=== PATIENT | female | born 1965 | race Caucasian/White ===

== ENCOUNTER → 2016-08-13 | Outpatient (CLI) | payer OTHER ==
[~2016-08-13] MED LIST: ACYC400T PO; ALBU17AE3 IH; AMIT25TA9 PO; AMOX500C2 PO; AZTH250C PO; BENZ100C18 PO; CEFP500T4 PO; CETI-208 PO; CETI10TA17 PO; CODE118S2 PO; DOXY100C2 PO; IBP800T PO; LRT10T PO; LVT.15T PO; MELO-195 PO; METH4TAB PO; METH5TAB6 PO; METO-333 PO; MPR22TI; NAPR-243 PO; NAPR220C PO; ONDAN4ODT PO; OXYC-12 PO; OXYC-309 PO; PRCD5U PO; PRD20T PO; TRAM50TA2 PO; TRM50T PO; WRF5T PO; [UNRECOGNIZED DRUG - OTHER] PO
--- OUTSIDE RECORDS SUMMARY | 2016-08-13 12:30 | XMS REPORT ---
Author Author ЮЛИЯ ZEPEDA [facility] eClinicalWorks Address Unknown Phone Unavailable Care Team Providers Care Key Person Name Role Phone ЮЛИЯ ZEPEDA CP Unavailable Allergies, Adverse Reactions, Alerts Substance Reaction Event Type Cortisone shot form Drug Allergy Penicillin V Potassium Info Not Available Drug Allergy Neurontin Info Not Available Drug Allergy Cymbalta Info Not Available Drug Allergy Problems Problem Type Condition Code Onset Dates Condition Status Problem Fibromyoma D21.9 Active Problem Gastroesophageal reflux disease without esophagitis K21.9 Active Problem Chronic pain G89.29 Active Problem Routine gynecological examination Z01.419 Active Assessment Pre-diabetes R73.09 Active Problem Screening breast examination Z12.39 Active Problem Pre-diabetes R73.09 Active Problem Generalized edema R60.1 Active Problem Slow transit constipation K59.01 Active Problem Left otitis media with effusion H66.92 Active Problem Vitamin D deficiency E55.9 Active Assessment Abnormal fasting glucose R73.01 Active Assessment Gastroesophageal reflux disease without esophagitis K21.9 Active Assessment Vitamin D deficiency E55.9 Active Assessment Generalized edema R60.1 Active Assessment Fibromyoma D21.9 Active Problem Abnormal fasting glucose R73.01 Active Assessment Allergic rhinitis J30.9 Active Problem Allergic rhinitis J30.9 Active Assessment Acquired hypothyroidism E03.9 Active Problem Acquired hypothyroidism E03.9 Active Medications Medication Code System Code Instructions Start Date End Date Status Dosage Cyclobenzaprine HCl [facility] [address]-71 10 MG Orally Three times a day 1 tablet as needed Hydrochlorothiazide [facility] [address]-60 25 MG Orally every other day October 31, 2015 1 tablet Levothyroxine Sodium [facility] [address]-22 112mcg Orally Once a day 1 tablet Omeprazole [facility] [address]-22 40 MG Orally Once a day 1 capsule Naproxen [facility] [address]-20 500 MG Orally 2 times a day 1 tablet Tramadol HCl [facility] [address]-23 50 MG Orally 2 times a day prn 1 tablet as needed Cetirizine HCl [facility] [address]-91 10 MG Orally Once a day 1 tablet Vitamin D3 [facility] [address] 34123 UNIT Orally once weekly January 03, 2016 1 tablet Procedures Procedure Coding System Code Date Office Visit, Est Pt., Level 4 CPT-4 69747 Jan 29, 2016 GLYCATED HEMOGLOBIN TEST CPT-4 73132 Jan 29, 2016 Vital Signs Date/Time: Jan 29, 2016 Cardiac Monitoring Heart Rate 78 bpm Weight 255.0 lbs Height 66 in BMI 41.15 Index Blood Pressure Diastolic 86 mmHg Blood Pressure Systolic 140 mmHg Results No Known Results Summary Purpose eClinicalWorks Submission
--- NOTE | 2016-08-13 14:23 | Diagnostic Imaging Report ---
PROCEDURE: CT abdomen without contrast. TECHNIQUE: Multiple contiguous axial images were obtained through the abdomen without the use of intravenous contrast. INDICATION: Abdominal mass. FINDINGS: The lung bases appear clear. The liver demonstrate diffuse marked degree of fatty infiltration. Cholecystectomy clips are seen. The spleen, the pancreas, and the adrenal glands appear unremarkable. The kidneys demonstrate no stones or hydronephrosis. Abdominal aorta is normal in caliber. No periaortic significantly enlarged lymph nodes. No free fluid or fluid collection in the abdomen seen. The segments of the colon and small bowel seen within the abdomen appear grossly unremarkable. The osseous structures demonstrate mild degenerative lateral osteophytes in the lower thoracic spine. There is vertebral body hemangioma in L2 level measuring 2 cm. IMPRESSION: Hepatic steatosis. Dictated by: Dictated on workstation # [id number]
== END ==
LOC: RAD 12:25
PROVIDERS: ATTEND Nurse Practitioner Family
DX: R19.02 Left upper quadrant abdominal swelling, mass and lump (principal)
CPT/HCPCS: 74150

== ENCOUNTER 2016-08-30 06:28 | Emergency (ER) | payer OTHER ==
[~2016-08-30] VITALS: Ht 165.1 cm; Wt 108.9 kg
[~2016-08-30 06:28] MED LIST changes: -ACYC400T PO; -PRD20T PO
[2016-08-30 06:52] LABS: BASOPHILS # (AUTO) 0.1 10^3/uL (0.0-0.1); BASOPHILS % (AUTO) 1 % (0-10); EOSINOPHILS # (AUTO) 0.5 10^3/uL (0.0-0.3); EOSINOPHILS % (AUTO) 5 % (0-10); LYMPHOCYTES # (AUTO) 2.9 X 10^3 (1.0-4.0); LYMPHOCYTES % (AUTO) 31 % (12-44); MEAN CORPUSCULAR HEMOGLOBIN 30 PG (25-34); MEAN CORPUSCULAR HGB CONC 34 G/DL (32-36); MEAN CORPUSCULAR VOLUME 86 FL (80-99); MEAN PLATELET VOLUME 10.6 FL (7.4-10.4); MONOCYTES # (AUTO) 0.6 X 10^3 (0.0-1.0); MONOCYTES % (AUTO) 6 % (0-12); NEUTROPHILS # (AUTO) 5.3 X 10^3 (1.8-7.8); NEUTROPHILS % (AUTO) 57 % (42-75); PLATELET COUNT 307 10^3/uL (130-400); RED BLOOD COUNT 4.51 10^6/uL (4.35-5.85); RED CELL DISTRIBUTION WIDTH 14.9 % (10.0-14.5); WHITE BLOOD COUNT 9.3 10^3/uL (4.3-11.0)
[2016-08-30] MEDS ORDERED: ACYCLOVIR 400 MG TABLET (ZOVIRAX) PO ONE (07:00)
[2016-08-30] MEDS ORDERED: predniSONE 20 MG TAB PO ONE ×2 (07:00→07:15)
--- NOTE | 2016-08-30 07:01 | ED Neurological Problem ---
General Chief Complaint: Neurological Problems Stated Complaint: POSS STROKE Nursing Triage Note: PT TO ED 5 W/ C/O LT SIDE FACIAL WEAKNESS ONSET YESTERDAY AT 1600. PT REPORTS SHE WOKE YESTERDAY FEELING "WEIRD". LT SIDE FACIAL DROOP NOTED, LT EYE WEEPING ET FACE HAS ASYMETRICAL APPEARANCE AT THIS TIME. NO OTHER DEFICIT NOTED, CRANE MAN EQUAL BILATERALLY. NO OTHER C/O VOICED Nursing Sepsis Screen: No Definite Risk Source: patient Exam Limitations: no limitations History of Present Illness Time seen by provider: 06:35 Initial Comments This 51-year-old woman presents to the emergency room with complaints of left- sided facial numbness and drooping. Symptoms were present upon waking this morning. Her last known well time was actually 2 nights ago as she noticed unusual feelings on the left side of the face including discomfort behind the left ear and left eye without noticeable neurologic deficits 2 nights ago. She reports recently being on doxycycline for swollen lymph nodes in her neck without any specific diagnosis. Antibiotics were prescribed on August 13. She completed all but 2 capsules. She has some left bicep pain which appears unrelated. She denies any other neurologic complaints such as numbness or weakness. She has minor headache. Weakness involves the eyelids and forehead. Patient also states she recently had a large increase in her levothyroxine dosing. Allergies and Home Medications Allergies Coded Allergies: Corticosteroids (Glucocorticoids) (Unverified Allergy, Unknown, HIVES, ) Reaction to joint injection. Takes prednisone without problems. gabapentin (Verified Allergy, Unknown, 08/30/16) hydrocodone (Unverified Adverse Reaction, Intermediate, NAUSEA, 08/30/16) Induces nausea and vomiting Uncoded Allergies: PENICILLIAN (Allergy, Unknown, 08/30/16) Home Medications Acyclovir 400 Mg Tablet #35 400 MG PO 5XD Prescribed by: DUYEN ALBERTO on 08/30/16 0740 Levothyroxine Sodium 150 Mcg Tablet 1 EACH PO DAILY (Reported) Loratadine 10 Mg Tab 10 MG PO DAILY (Reported) Mupirocin 22 Gm Tube 1 APPLIC NA BID (Reported) APPLY TO AFFECTED AREA(S) Oxycodone Hcl/Acetaminophen 1 Each Tablet #40 1 EACH PO Q4-6H PRN PRN PRN ( Reported) Prednisone 20 Mg Tab #12 20 MG PO UD Start 08/31/16. 3 tabs daily x2 days, then 2 tabs daily x2 days, then 1 tab daily x2 days. Prescribed by: DUYEN ALBERTO on 08/30/16 0740 Warfarin Sod 5 Mg Tab 7.5 MG PO DAILY@18 (Reported) Take as instructed by Dr. Robles Constitutional: no symptoms reported Eyes: See HPI Ears, Nose, Mouth, Throat: see HPI Respiratory: no symptoms reported Cardiovascular: no symptoms reported Gastrointestinal: no symptoms reported Genitourinary: no symptoms reported : No Musculoskeletal: see HPI Skin: no symptoms reported Psychiatric/Neurological: See HPI Endocrine: No Symptoms Reported Hematologic/Lymphatic: No Symptoms Reported Past Xtjjoyi-Mdmhpy-Mtmhbf Hx Patient Social History Alcohol Use: Denies Use Recreational Drug Use: No Smoking Status: Never a Smoker Recent Foreign Travel: No Contact w/Someone Who Travel: No Recent Infectious Disease Expo: No Recent Hopitalizations: No Immunizations Up To Date Tetanus Booster (TDap): Unknown Date of Influenza Vaccine: Jun 15, 2010 Surgeries HX Surgeries: Yes (C/S X2, ) Surgeries: Orthopedic (knee), Thyroidectomy Respiratory Hx Respiratory Disorders: No Cardiovascular Hx Cardiac Disorders: No Neurological Hx Neurological Disorders: No Reproductive System Hx Reproductive Disorders: No Genitourinary Hx Genitourinary Disorders: No Gastrointestinal Hx Gastrointestinal Disorders: No Musculoskeletal Hx Musculoskeletal Disorders: Yes (PAIN DUE TO THYROID (IN HANDS AND KNEES) ) Musculoskeletal Disorders: Arthritis, Fibromyalgia Endocrine Hx Endocrine Disorders: Yes (GRAVES DISEASE, TOTAL THYROIDECTOMY) Endocrine Disorders: Hypothyroidsim HEENT HX ENT Disorders: No Cancer Hx Cancer: No Psychosocial Hx Psychiatric Problems: No Integumentary HX Skin/Integumentary Disorder: No Blood Transfusions Hx Blood Disorders: No Physical Exam Vital Signs Vital Sign - Last 12Hours 08/30/16 06:29 Temp 96.0 Pulse 95 Resp 16 B/P 135/103 O2 Delivery Room Air Capillary Refill : Less Than 3 Seconds General Appearance: WD/WN no apparent distress obese HEENT: PERRL/EOMI TMs normal pharynx normal other (left-sided facial weakness) Neck: normal inspection other (thyroidectomy scar) Respiratory: lungs clear normal breath sounds no respiratory distress no accessory muscle use Cardiovascular: regular rate, rhythm no edema no murmur Gastrointestinal: normal bowel sounds non tender soft Extremities: normal inspection no pedal edema Neurologic/Psychiatric: no motor/sensory deficits alert normal mood/affect oriented x 3 Crainal Nerves: normal hearing normal speech PERRL facial asymmetry (left facial weakness including weak blink and loss of muscle tone in the left forehead) facial paresthesias (left face) Coordination/Gait: normal finger to nose normal gait Skin: normal color warm/dry Focused Exam Lactic Acid Level Laboratory Tests Test 08/30/16 06:30 Alanine Aminotransferase (ALT/SGPT) 23U/L (0-55) Albumin 3.8G/DL (3.2-4.5) Alkaline Phosphatase 71U/L (40-136) Anion Gap 10MMOL/L (5-14) Aspartate Amino Transf (AST/SGOT) 21U/L (5-34) BUN/Creatinine Ratio 15 Blood Urea Nitrogen 14MG/DL (7-18) Calcium Level 8.9MG/DL (8.5-10.1) Carbon Dioxide Level 28MMOL/L (21-32) Chloride Level 101MMOL/L (98-107) Creatinine 0.92MG/DL (0.60-1.30) Estimat Glomerular Filtration Rate > 60 Free Thyroxine 0.91NG/DL (0.70-1.48) Glucose Level 120MG/DL (70-105) H Potassium Level 3.4MMOL/L (3.6-5.0) L Sodium Level 139MMOL/L (135-145) Thyroid Stimulating Hormone (TSH) 14.40UIU/ML (0.35-4.94) H Total Bilirubin 0.6MG/DL (0.1-1.0) Total Protein 7.1G/DL (6.4-8.2) Progress/Results/Core Measures Results/Orders Lab Results Laboratory Tests Test 08/30/16 06:30 Range/Units Alanine Aminotransferase (ALT/SGPT) 23 0-55 U/L Albumin 3.8 3.2-4.5 G/DL Alkaline Phosphatase 71 40-136 U/L Anion Gap 10 5-14 MMOL/L Aspartate Amino Transf (AST/SGOT) 21 5-34 U/L BUN/Creatinine Ratio 15 Basophils # (Auto) 0.1 0.0-0.1 10^3/uL Basophils (%) (Auto) 1 0-10 % Blood Urea Nitrogen 14 7-18 MG/DL Calcium Level 8.9 8.5-10.1 MG/DL Carbon Dioxide Level 28 21-32 MMOL/L Chloride Level 101 98-107 MMOL/L Creatinine 0.92 0.60-1.30 MG/DL Eosinophils # (Auto) 0.5 H 0.0-0.3 10^3/uL Eosinophils (%) (Auto) 5 0-10 % Estimat Glomerular Filtration Rate > 60 Free Thyroxine 0.91 0.70-1.48 NG/DL Glucose Level 120 H 70-105 MG/DL Hematocrit 39 35-52 % Hemoglobin 13.3 11.5-16.0 G/DL Lymphocytes # (Auto) 2.9 1.0-4.0 X 10^3 Lymphocytes (%) (Auto) 31 12-44 % Mean Corpuscular Hemoglobin 30 25-34 PG Mean Corpuscular Hemoglobin Concent 34 32-36 G/DL Mean Corpuscular Volume 86 80-99 FL Mean Platelet Volume 10.6 H 7.4-10.4 FL Monocytes # (Auto) 0.6 0.0-1.0 X 10^3 Monocytes (%) (Auto) 6 0-12 % Neutrophils # (Auto) 5.3 1.8-7.8 X 10^3 Neutrophils (%) (Auto) 57 42-75 % Platelet Count 307 130-400 10^3/uL Potassium Level 3.4 L 3.6-5.0 MMOL/L Red Blood Count 4.51 4.35-5.85 10^6/uL Red Cell Distribution Width 14.9 H 10.0-14.5 % Sodium Level 139 135-145 MMOL/L Thyroid Stimulating Hormone (TSH) 14.40 H 0.35-4.94 UIU/ML Total Bilirubin 0.6 0.1-1.0 MG/DL Total Protein 7.1 6.4-8.2 G/DL White Blood Count 9.3 4.3-11.0 10^3/uL My Orders Orders-DUYEN ERICKSON MD Cbc With Automated Diff (08/30/16 06:46) Comprehensive Metabolic Panel (08/30/16 06:46) Thyroid Stimulating Hormone (08/30/16 06:46) Saline Lock/Iv-Start (08/30/16 06:46) Free T4 (Free Thyroxine) (08/30/16 06:46) Acyclovir Capsule/Tablet (Zovirax Caps (08/30/16 07:00) Prednisone Tablet (Deltasone Tablet) (08/30/16 07:00) Prednisone Tablet (Deltasone Tablet) (08/30/16 07:15) Medications Given in ED Current Medications Medications Dose Ordered Sig/Raya Route Start Time Stop Time Status Last Admin Dose Admin Acyclovir 400 mg ONCE ONCE PO 08/30/16 07:00 08/30/16 07:01 DC 08/30/16 07:13 400 MG Prednisone 60 mg ONCE ONCE PO 08/30/16 07:15 08/30/16 07:16 DC 08/30/16 07:13 60 MG Vital Signs/I&O Vital Sign - Last 12Hours 08/30/16 06:29 Temp 96.0 Pulse 95 Resp 16 B/P 135/103 O2 Delivery Room Air Blood Pressure Mean: 114 Progress Note #1: Time: 06:56 Progress Note Patient seen and examined. 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 Stroke activation was not paged. Patient has involvement of the eye and forehead with progression of symptoms. 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 Prednisone and acyclovir have been ordered. I did clarify with the patient that she does not have an allergy to prednisone and has taken it recently without problems. Her steroid allergy was to a joint injection. Basic labs including thyroid function are being obtained. EKG was normal. Patient has some pain in the left biceps area that appears to be unrelated. Progress Note #2: Progress Note Patient received her first dose of acyclovir and prednisone in the emergency room. A prednisone taper was prescribed. Workup was unremarkable other than elevated TSH. Free T4 was normal. Patient is suspected as having Eldridge's palsy related to recent upper respiratory syndrome. ECG Initial ECG Impression Date: Aug 30, 2016 Initial ECG Impression Time: 05:38 Initial ECG Rate: 86 Initial ECG Rhythm: Normal Sinus Initial ECG Intervals: Normal Initial ECG Impression: Normal Comment Normal sinus rhythm with no ST elevation or depression. No abnormal intervals or axis deviation. Departure Impression Impression: Primary Impression: Eldridge's palsy Additional Impression: Hypothyroidism Qualified Code: E03.9 - Hypothyroidism, unspecified Disposition: 01 HOME, SELF-CARE Condition: Stable Departure-Patient Inst. Decision time for Depature: 07:00 Referrals: NANO BUCKLEY DO (PCP) Primary Care Physician ЮЛИЯ ZEPEDA (Family) Primary Care Physician Patient Instructions: Eldridge's Palsy Add. Discharge Instructions: Follow-up with your primary care provider as soon as possible. Return to the emergency room if you have worsening symptoms or any other concerns. Complete your prednisone steroid taper and acyclovir as prescribed. Eat and drink carefully because of the facial and mouth numbness. Use copious amounts of [id number] eye moisturizing drops to keep your eye moist. Wear glasses or sunglasses in sivakumar or windy environments to protect your eye. If unable to close your eye completely, tape your eye shut while sleeping at night. Follow-up with your primary care provider regarding monitoring of your thyroid function. All discharge instructions reviewed with patient and/or family. Voiced understanding. Scripts Prednisone 20 Mg Tab20 Mg PO UD #12 TAB Start 08/31/16. 3 tabs daily x2 days, then 2 tabs daily x2 days, then 1 tab daily x2 days. Prov:DUYEN ERICKSON MD 08/30/16 Acyclovir 400 Mg [id number] Mg PO 5XD #35 TAB Prov:DUYEN ERICKSON MD 08/30/16 DUYEN ERICKSON MD Aug 30, 2016 07:01
[2016-08-30 07:08] LABS: ALANINE AMINOTRANSFERASE 23 U/L (0-55); ALBUMIN 3.8 G/DL (3.2-4.5); ANION GAP 10 MMOL/L (5-14); ASPARTATE AMINO TRANSFERASE 21 U/L (5-34); BILIRUBIN,TOTAL 0.6 MG/DL (0.1-1.0); BLOOD UREA NITROGEN 14 MG/DL (7-18); BUN/CREATININE RATIO 15; CALCIUM 8.9 MG/DL (8.5-10.1); CARBON DIOXIDE 28 MMOL/L (21-32); CHLORIDE 101 MMOL/L (98-107); CREATININE SERUM 0.92 MG/DL (0.60-1.30); GFR ESTIMATED > 60; GLUCOSE 120 MG/DL (70-105); POTASSIUM 3.4 MMOL/L (3.6-5.0); SODIUM 139 MMOL/L (135-145); TOTAL PROTEIN 7.1 G/DL (6.4-8.2)
[2016-08-30] MEDS ORDERED: ACYC400T PO (07:40)
[2016-08-30] MEDS ORDERED: PRD20T PO (07:40)
[2016-08-30 07:50] VITALS: BP 132/98
== END 2016-08-30 07:50 | disposition home or self-care (01) ==
LOC: EDUNIT# 06:28 → ER 06:31
DX: G51.0 Bell's palsy (principal); E03.9 Hypothyroidism, unspecified
CPT/HCPCS: 36415; 80053; 84439; 84443; 85025

== ENCOUNTER → 2018-01-19 | Outpatient (CLI) | payer OTHER ==
[~2018-01-19] MED LIST changes: +ACYC400T PO; +PRD20T PO
--- NOTE | 2018-01-19 18:51 | Diagnostic Imaging Report ---
INDICATION: Routine screening. COMPARISON is made with prior exam from 01/15/2016 and 11/03/2013. 2-D and 3-D bilateral screening mammography was performed with CAD. FINDINGS: Scattered fibroglandular densities are identified bilaterally. The parenchymal pattern is stable. No dominant mass or malignant-appearing microcalcifications are seen. The axillae are unremarkable. IMPRESSION: BI-RADS category 1. No mammographic features suspicious for malignancy are identified. ACR BI-RADS Category 1: Negative. Result letter will be mailed to the patient. Note: At least 10% of breast cancer is not imaged by mammography. Dictated by: Dictated on workstation # [id number]
== END ==
LOC: RAD 15:36
PROVIDERS: ATTEND Nurse Practitioner Family
DX: Z12.31 Encounter for screening mammogram for malignant neoplasm of breast (principal)
CPT/HCPCS: 77067

== ENCOUNTER → 2018-02-26 | Outpatient (CLI) | payer SELFPAY ==
--- NOTE | 2018-02-26 15:38 | Diagnostic Imaging Report ---
PROCEDURE: US right lower extremity venous. TECHNIQUE: Multiple real-time grayscale images were obtained over the right lower extremity in various projections. Additional duplex Doppler and color Doppler images were also obtained. INDICATION: Left lower extremity pain and swelling. There is no evidence of a left lower extremity DVT. The left lower extremity deep venous system shows normal compressibility with normal response to augmentation and Valsalva. No fluid collection or mass is seen. IMPRESSION: No evidence of left lower extremity DVT. Dictated by: Dictated on workstation # [id number]
== END ==
LOC: RAD 14:36
PROVIDERS: ATTEND Nurse Practitioner Family
DX: M79.89 Other specified soft tissue disorders (principal)

== ENCOUNTER → 2018-03-16 | Outpatient (CLI) | payer SELFPAY | END | disposition home or self-care (01) | LOC: PREOP 05:36 | PROVIDERS: ATTEND Surgery | DX: Z01.818 Encounter for other preprocedural examination (principal) ==